=== PATIENT | male | born 1990 | race Caucasian/White ===

== ENCOUNTER 2016-12-22 10:04 | Emergency (ER) | payer MEDICAID ==
[2016-12-22] MEDS ORDERED: NS 1,000 ML IV ONE (10:44)
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
[2016-12-22] MEDS ORDERED: predniSONE 20 MG TAB PO STA (11:57)
[2016-12-22 12:02] LABS: ANION GAP 12 mEq/L (8-16); CALCIUM 8.8 mg/dL (8.5-10.4); CARBON DIOXIDE 27 mEq/l (22-31); CHLORIDE 91 mEq/L (97-110); GLOMERULAR FILTRATION RATE > 60; GLUCOSE 105 mg/dL (70-100); POTASSIUM 3.5 mEq/L (3.5-5.2); SODIUM 130 mEq/L (134-144)
[2016-12-22 13:04] VITALS: BP 123/77; PULSE 86; RESP 14; TEMP 97.5; O2SAT 96
[2016-12-22 13:07] LABS: % IMMATURE GRANULYOCYTES 0.5 % (0.0-1.1); ABSOLUTE IMMATURE GRANULOCYTES 0.04 10^3/uL (0.00-0.10); ADD DIFF? NO; ADD MORPH? NO; ADD SCAN? YES; FRAGMENT RBC FLAG 10 (0-99); HEMATOCRIT 43.1 % (40.0-51.0); HEMOGLOBIN 15.2 g/dL (13.7-17.5); LEFT SHIFT FLG 20 (0-99); LIPEMIA HEMOLYSIS FLAG 90 (0-99); MEAN CELL HEMOGLOBIN 31.9 pg (27.9-34.1); MEAN CELL HEMOGLOBIN CONCENTR. 35.3 g/dL (32.4-36.7); MEAN CELL VOLUME 90.5 fL (81.5-99.8); MEAN PLATELET VOLUME 10.7 fL (8.7-11.7); PLATELET CLUMPS FLAG 20 (0-99); PLATELET COUNT 189 10^3/uL (150-400); RED BLOOD CELL COUNT 4.76 10^6/uL (4.40-6.38); RED CELL DISTRIBUTION WIDTH 13.2 % (11.5-15.2)
[2016-12-22 13:08] LABS: ATYPICAL LYMPHOCYTE FLAG 160 (0-99)
[2016-12-22 14:04] LABS: SCAN NEGATIVE
== END 2016-12-22 13:04 | disposition home or self-care (01) ==
LOC: EDUNIT#
DX: J40 Bronchitis, not specified as acute or chronic (principal); B34.9 Viral infection, unspecified; F17.200 Nicotine dependence, unspecified, uncomplicated

== ENCOUNTER 2018-05-08 16:48 | Emergency (ER) | payer MEDICAID, OTHER ==
--- NOTE | 2018-05-08 17:12 | EDPHY ---
H & P Time Seen by Provider: 05/08/18 16:54 HPI/ROS: CHIEF COMPLAINT: "I think I ruptured my Achilles tendon" HISTORY OF PRESENT ILLNESS: 27-year-old male currently residing in long-term, was playing basketball in long-term, was jumping up and felt a pop in his right Achilles. He is unable to bear weight secondary to pain. Denies calcaneal pain. Denies fall from height. Denies paresthesia. Occurred shortly prior to arrival. No recent fluoroquinolone use. PHYSICAL EXAM (Prior to examination, patient consented to physical exam, hands were washed and my usual and customary physical exam procedures followed) 1) GENERAL: Well-developed, well-nourished, alert and oriented. Appears to be in no acute distress. 2) HEAD: Normocephalic 3) HEENT: Pupils equal, round, reactive to light bilaterally. 4) LUNGS: Breathing comfortably. 5) MUSCULOSKELETAL: Noted Achilles defect. proximal tibia and fibula nontender .5th MT nontender positive Pederson test, compartments soft 6) SKIN: Intact 7) VASCULAR: DP,PT pulses and cap refill present and brisk DIFFERENTIAL DIAGNOSIS: in no particular order including but not limited to fracture, sprain, compartment syndrome Procedure: Crutches indications for crutch use discussed with patient. Patient fitted for crutches by ER staff. Observed ambulating with crutches. I think the patient has the capacity to safely use crutches. Usual and customary crutch walking precautions provided Procedure: Splint A manuel boot splint was applied by ER systems technician. After application of the splint I returned and re-examined the patient. The splint was adequately immobilizing the joint and distal to the splint the patient's circulation and sensation were intact. Patient shows no signs of compartment syndrome. Was given orthopedic precautions. Smoking Status: Current every day smoker Constitutional: Initial Vital Signs Temperature (C) 36.8 C 05/08/18 16:52 Heart Rate 99 05/08/18 16:52 Respiratory Rate 16 05/08/18 16:52 Blood Pressure 123/88 H 05/08/18 16:52 O2 Sat (%) 93 10/20/18 16:52 O2 Delivery Mode Room Air Allergies/Adverse Reactions: No Known Allergies Allergy (Verified 10/02/13 19:38) Home Medications: Medication Instructions Recorded NK [No Known Home Meds] 05/08/18 MDM/Departure - MDM Imaging Results: Imaging Impressions Ankle X-Ray 05/08/18 17:10 Impression: No acute fracture or dislocation. Foot X-Ray 05/08/18 17:10 Impression: 1. No acute osseous findings. 2. Probable Achilles rupture. Images reviewed myself ED Course/Re-evaluation: Re-evaluation with serial exams. Neurovascular intact. Soft compartments. I saw this patient independently based on established practice protocols. Care of patient under supervision of secondary supervising physician Dr Chavez. - Depart Disposition: Law Enforcement/Court/Prison Clinical Impression: Achilles rupture, right Qualifiers: Encounter type: initial encounter Qualified Code(s): S86.011A - Strain of right Achilles tendon, initial encounter Condition: Good Instructions: Achilles Tendon Rupture (ED) Additional Instructions: MEDICALLY CLEARED FOR RESIDENTIAL Return to the ER immediately if you experience discoloration, have worsening pain, numbness, tingling, or any other symptoms that concern you. If you received x-rays in the emergency department today, be advised, that ligamentous , tendon, muscular, and other non-bony injury cannot be fully ruled out. Try to keep your affected extremity elevated above the level of your chest, and keep cold packs on the affected area, for the next 48 hours. Referrals: Giuliano Peck MD [Medical Doctor] - 2-3 days, call for appt. (Dr. Giuliano Peck is orthopedic surgeon)
[2018-05-08 18:21] VITALS: BP 121/70
== END 2018-05-08 18:21 ==
LOC: EEVIPCON 16:48
DX: S86.011A Strain of right Achilles tendon, initial encounter (principal); X50.0XXA Overexertion from strenuous movement or load, initial encounter; Y93.67 Activity, basketball; Y92.149 Unspecified place in prison as the place of occurrence of the external cause; Y99.8 Other external cause status
CPT/HCPCS: L4386